=== PATIENT | female | born 1945 | race Caucasian/White ===

== ENCOUNTER 2020-01-01 14:57 | Inpatient (IN) | payer OTHER ==
[~2020-01-01] VITALS: Ht 157.5 cm; Wt 47.8 kg
[2020-01-01 15:06] VITALS: BP 205/65
[2020-01-01 15:32] LABS: HEMATOCRIT 40.9 % (37.0-47.0); HEMOGLOBIN 13.1 gm/dL (12.0-15.0); MCH 29.1 pg (26.0-34.0); MCHC 31.9 g/dL (28.0-37.0); MCV 91.3 fL (80.0-100.0); MPV 8.1 fl. (7.2-11.1); NUCLEATED RBCS 0 /100WBC; PLATELET COUNT* 664 thou/uL (150-400); RBC 4.48 mil/uL (4.20-5.00); RDW-CV 14.2 % (10.5-14.5); WBC 22.6 thou/uL (4.0-11.0)
[2020-01-01 15:46] LABS: APTT 21.5 Seconds (25.0-31.3); CALCIUM 8.9 mg/dL (8.5-10.1); CREATININE 0.9 mg/dL (0.6-1.3); INR 1.1; POTASSIUM 4.8 mmol/L (3.5-5.1); PROTIME 11.2 Seconds (9.20-11.50)
[2020-01-01 15:56] LABS: ABSOLUTE LYMPHOCYTES 1.6 thou/uL (0.8-5.3); ABSOLUTE MONOCYTES 1.4 thou/uL (0.0-1.2); ABSOLUTE NEUTROPHILS 19.7 thou/uL (1.6-8.1); PLATELET ESTIMATE INCREASED; TOTAL BILIRUBIN 0.4 mg/dL (<0.1-1.0); TOTAL PROTEIN 7.8 g/dL (6.4-8.2)
[2020-01-01] MEDS ORDERED: NEURONTIN 300M300 M2 PO (16:09)
[2020-01-01] MEDS ORDERED: MIRTAZAPINE7.5 MG PO (16:10)
[2020-01-01] MEDS ORDERED: ADVAIR HFA 230M12 GM INH (16:10)
[2020-01-01] MEDS ORDERED: PREDNISONE 5 MG5 M1 PO (16:11)
[2020-01-01] MEDS ORDERED: IPRAT-ALBUT 0.5-3 ML INH (16:11)
[2020-01-01] MEDS ORDERED: FLONASE 0.05%50 MCG NARES (16:12)
[2020-01-01] MEDS ORDERED: CARBAMAZEPINE100 M2 PO (16:12)
[2020-01-01] MEDS ORDERED: ALENDRONATE SOD70 MG PO (16:12)
[2020-01-01] MEDS ORDERED: SINGULAIR 10 MG10 M1 PO (16:13)
[2020-01-01] MEDS ORDERED: PLAVIX 75 MG TA75 MG PO (16:13)
[2020-01-01] MEDS ORDERED: ASA81BEC PO (16:13)
[2020-01-01] MEDS ORDERED: HYDROCHLOROTHIA25 M2 PO ×2 (16:14→16:15)
[2020-01-01] MEDS ORDERED: ZESTRIL40 MG PO (16:14)
[2020-01-01] MEDS ORDERED: LIPITOR40 MG PO (16:15)
--- NOTE | 2020-01-01 17:37 | EKG ---
[place] [address] ELECTROCARDIOGRAM REPORT Name: ALLISON ELIAS Room: [facility]#: [id number] Admission: 01/01/20 Attend Phys: Discharge: Date of : 41 Date of Service: 01/01/20 1506 Report #: [id number] THIS REPORT FOR: //name// [facility] ED Test Date: 2020-01-01 Test Time: 15:06:46 Pat Name: ALLISON ELIAS Department: Room: Gender: F Load Dispatcher: LALO : 1945 Requested By: Prasanth Edouard Order Number: [id number] MD: Cory Kay Measurements Intervals [place] Rate: 90 P: 86 RI: 176 QRS: -12 QRSD: 120 T: 79 QT: 501 QTc: 613 Interpretive Statements Sinus rhythm with mobitz I av block Ventricular tachycardia, unsustained Biatrial enlargement Left ventricular hypertrophy Nonspecific T abnrm, anterolateral leads Borderline prolonged QT interval No previous ECG available for comparison Electronically Signed On 01-01-2020 17:35:23 CDT by Cory Kay [email or web address] <ELECTRONICALLY SIGNED> By: Cory Kay MD, [facility] 01/01/20 1735 1506 1506 Cory Kay MD, [facility] /EPI
--- NOTE | 2020-01-01 17:38 | EKG ---
[place] [address] ELECTROCARDIOGRAM REPORT Name: ALLISON ELIAS Room: [facility]#: [id number] Admission: 01/01/20 Attend Phys: Discharge: Date of : 41 Date of Service: 01/01/20 1507 Report #: [id number] THIS REPORT FOR: //name// [facility] ED Test Date: 2020-01-01 Test Time: 15:07:27 Pat Name: ALLISON ELIAS Department: Room: Gender: F Line Palletizer: : 1945 Requested By: Prasanth Edouard Order Number: [id number] Isaac MD: Cory Kay Measurements Intervals [place] Rate: 107 P: 87 [place]: 170 QRS: 11 QRSD: 137 T: 61 QT: 445 QTc: 594 Interpretive Statements Sinus tachycardia with mobitz type I av block Probable left atrial enlargement Right bundle branch block Electronically Signed On 01-01-2020 17:36:37 CDT by Cory Kay [email or web address] <ELECTRONICALLY SIGNED> By: Cory Kay MD, [facility] 01/01/20 1736 D: 05/7 150 Cory Kay MD, FACC /EPI
[2020-01-01 18:48] VITALS: BP 131/74
[2020-01-01 20:00] VITALS: BP 142/84
--- NOTE | 2020-01-01 20:00 | NUR ---
RECEIVED REPORT AND ASSUMED CARE OF PT. PT SITTING UP IN BED, VERY SOA WITH DIFFICULTY TALKING. INSTRUCTED ON PURSE LIP BREATHING. O2 ON AT 5L/NC WITH O2 SAT OF 95%. TELEMETRY ON SHOWING SR. SEE ADMISSION ASSESSMENT AND HX. WILL CONT TO MONITOR AND ASSIST NEEDED.
[2020-01-02 00:14] VITALS: BP 112/70
[2020-01-02 00:41] LABS: % SATURATION 8 % (20-39); IRON 39 ug/dL (50-175)
[2020-01-02 04:21] VITALS: BP 126/71
--- NOTE | 2020-01-02 06:48 | NUR ---
STATES SHE FEELS BETTER THIS AM. BREATHING IMPROVED, LESS AIR HUNGER. ABLE TO DO GROOMING WITHOUT SOA. TELEMETRY CONT TO SHOW SR. HS GOALS OF REST AND SAFETY ACHIEVED. HOURLY ROUNDING OBSERVED.
[2020-01-02 08:00] VITALS: BP 125/72
[2020-01-02 11:37] LABS: HEMATOCRIT 35.8 % (37.0-47.0); HEMOGLOBIN 11.7 gm/dL (12.0-15.0); MCH 29.5 pg (26.0-34.0); MCHC 32.6 g/dL (28.0-37.0); MCV 90.5 fL (80.0-100.0); MPV 8.2 fl. (7.2-11.1); RBC 3.95 mil/uL (4.20-5.00); RDW-CV 14.5 % (10.5-14.5); WBC 22.2 thou/uL (4.0-11.0)
[2020-01-02 11:50] LABS: ALBUMIN 3.6 g/dL (3.4-5.0); CALCIUM 8.9 mg/dL (8.5-10.1); PHOSPHORUS* 2.5 mg/dL (2.5-4.9)
[2020-01-02 11:56] LABS: POTASSIUM 3.7 mmol/L (3.5-5.1)
[2020-01-02 12:00] VITALS: BP 92/57
[2020-01-02 17:33] VITALS: BP 118/65
--- NOTE | 2020-01-02 19:45 | NUR ---
PT. AOX4, APPEARS MILDLY CONFUSED AT TIMES, SR ON MONITOR, DENIES PAIN. NON-LABORED BREATHING, STABLE O2 SATS ON 4L NC. ENSURE SUPPLEMENT WITH ALL MEALS. HOURLY ROUNDING PERFORMED. CALL LIGHT AND PERSONAL BELONGINGS PLACED WITHIN REACH.
[2020-01-02 20:00] VITALS: BP 129/78
--- NOTE | 2020-01-02 20:00 | NUR ---
RECEIVED REPORT AND ASSUMED CARE OF PT, ASSESSMENT COMPLETED. O2 ON AT 4L/NC, VERY SOA WITH ANY ACTIVITY. RESTING WITH HOB ELEVATED. TELEMETRY ON SHOWING ST TO SR. WILL CONT TO MONITOR AND ASSIST NEEDED.
[2020-01-03] VITALS: BP 140/83
[2020-01-03 04:00] VITALS: BP 121/72
--- NOTE | 2020-01-03 05:35 | NUR ---
SLEPT WELL TONIGHT. UP TO BR WITH SBA AND STEADY GAIT. BECOMES SOA WITH ANY ACTIVITY. TELEMETRY CONT TO SHOW SR WITH OCC PVC. HS GOALS OF REST AND SAFETY ACHIEVED. HOURLY ROUNDING OBSERVED.
[2020-01-03 08:00] VITALS: BP 127/69
[2020-01-03 10:01] LABS: ALBUMIN 3.7 g/dL (3.4-5.0); CALCIUM 8.9 mg/dL (8.5-10.1); CREATININE 1.2 mg/dL (0.6-1.3); MAGNESIUM 2.1 mg/dL (1.8-2.4)
[2020-01-03] MEDS ORDERED: CARBAMAZEPINE100 M2 PO (10:52)
[2020-01-03] MEDS ORDERED: LEVAQUIN 750 M750 MG PO (10:52)
[2020-01-03] MEDS ORDERED: NICOTINE TRANSD14 M1 TRANSDERM (10:52)
[2020-01-03] MEDS ORDERED: FERROUSUL325 M1 PO (10:52)
[2020-01-03] MEDS ORDERED: SENOKOT-S1 TA2 PO (10:52)
[2020-01-03] MEDS ORDERED: REMERON15 M2 PO (10:52)
[2020-01-03] MEDS ORDERED: C COMPLEX500 MG PO (10:52)
[2020-01-03] MEDS ORDERED: PREDNISONE 5 MG5 M1 PO (10:57)
[2020-01-03 12:37] VITALS: BP 103/74
[2020-01-03 13:46] VITALS: BP 103/74
--- NOTE | 2020-01-03 14:10 | NUR ---
PT VSS, A&OX4, SR WITH PVCS ON TELE, NC@4L BASELINE, STAND BY ASSIST, HOURLY ROUNDING PERFORMED, POSSESSIONS AND CALL LIGHT WITHIN REACH. REC DISCHARGE ORDERS, REVIEWED WITH PATIENT, TELE MONITOR AND IV REMOVED WITHOUT COMPLICATION, SCRIPTS SENT ELECTRONICALLY- CARE NOTES GIVEN, PT TAKEN TO ED EXIT IN WHEELCHAIR BY NURSING STAFF, PICKED UP BY SON IN FAMILY CAR
== END 2020-01-03 15:20 | disposition home or self-care (01) | DRG 193 ==
LOC: M.ERS 14:57 → M.2W 16:09 → M.TBA-ER 16:09 → M.ERS 18:52 → M.2W 19:19
PROVIDERS: Emergency Medicine Emergency Medical Services; ADMIT Family Medicine
DX: J15.9 Unspecified bacterial pneumonia (principal); J96.20 Acute and chronic respiratory failure, unspecified whether with hypoxia or hypercapnia; R65.11 Systemic inflammatory response syndrome (SIRS) of non-infectious origin with acute organ dysfunction; I16.1 Hypertensive emergency; I24.8 Other forms of acute ischemic heart disease; J43.9 Emphysema, unspecified; F17.210 Nicotine dependence, cigarettes, uncomplicated; R79.89 Other specified abnormal findings of blood chemistry; T38.0X5A Adverse effect of glucocorticoids and synthetic analogues, initial encounter; D47.3 Essential (hemorrhagic) thrombocythemia; D50.9 Iron deficiency anemia, unspecified; Z88.1 Allergy status to other antibiotic agents; Z99.81 Dependence on supplemental oxygen; Z79.899 Other long term (current) drug therapy

== ENCOUNTER 2021-05-17 22:12 | Observation (INO) | payer OTHER ==
[~2021-05-17] VITALS: Ht 152.4 cm; Wt 53.2 kg
[~2021-05-17 22:12] MED LIST: ADVAIR HFA 230M12 GM INH; ALENDRONATE SOD70 MG PO; ASA81BEC PO; C COMPLEX500 MG PO; CARBAMAZEPINE100 M2 PO; FERROUSUL325 M1 PO; FLONASE 0.05%50 MCG NARES; HYDROCHLOROTHIA25 M2 PO; IPRAT-ALBUT 0.5-3 ML INH; LEVAQUIN 750 M750 MG PO; LIPITOR40 MG PO; MIRTAZAPINE7.5 MG PO; NEURONTIN 300M300 M2 PO; NICOTINE TRANSD14 M1 TRANSDERM; PLAVIX 75 MG TA75 MG PO; PREDNISONE 5 MG5 M1 PO; REMERON15 M2 PO; SENOKOT-S1 TA2 PO; SINGULAIR 10 MG10 M1 PO; ZESTRIL40 MG PO
[2021-05-17 22:13] VITALS: BP 167/74
[2021-05-17 23:14] LABS: CALCIUM 9.1 mg/dL (8.5-10.1); POTASSIUM 4.3 mmol/L (3.5-5.1)
[2021-05-17 23:19] LABS: ALBUMIN 3.9 g/dL (3.4-5.0); TOTAL BILIRUBIN 0.5 mg/dL (<0.1-1.0); TOTAL PROTEIN 7.3 g/dL (6.4-8.2)
[2021-05-17 23:24] LABS: PLATELET ESTIMATE INCREASED
[2021-05-17 23:25] LABS: LARGE PLATELETS FEW
[2021-05-17 23:26] LABS: TOXIC GRANULATION Occasional
[2021-05-17 23:30] LABS: ABSOLUTE LYMPHOCYTES 2.5 thou/uL (0.8-5.3); ABSOLUTE NEUTROPHILS 17.5 thou/uL (1.6-8.1); HEMATOCRIT 42.6 % (37.0-47.0); HEMOGLOBIN 13.8 gm/dL (12.0-15.0); MCH 30.1 pg (26.0-34.0); MCV 92.9 fL (80.0-100.0); RBC 4.59 mil/uL (4.20-5.00)
[2021-05-17 23:31] LABS: MCHC 32.4 g/dL (28.0-37.0); MPV 7.4 fl. (7.2-11.1); PLATELET COUNT* 731 thou/uL (150-400); RDW-CV 14.4 % (10.5-14.5)
[2021-05-17 23:36] LABS: APTT 22.2 Seconds (25.0-31.3); INR 1.1; PROTIME 11.4 Seconds (9.20-11.50)
[2021-05-17 23:37] LABS: BE 4.6 mmol/L (-2 to +3); PCO2 43.7 mmHg (35.0-45.0); PO2 103.1 mmHg (75.0-100.0); pH 7.444 (7.340-7.450)
--- NOTE | 2021-05-17 23:51 | NUR ---
PURWICK APPLIED AT THIS TIME.
[2021-05-18] VITALS (7 sets, daily range): BP systolic 100–172; BP diastolic 53–75
[2021-05-18] MEDS ORDERED: CARBAMAZEPINE300 MG PO (08:26)
[2021-05-18] MEDS ORDERED: FERROUS GLUCON324 M2 PO (08:29)
[2021-05-18] MEDS ORDERED: TRELEGY ELLIPT1 EACH INH (08:31)
[2021-05-18] MEDS ORDERED: HYDROCHLOROTH12.5 M2 PO (08:32)
[2021-05-18] MEDS ORDERED: TOPROL XL25 MG PO (08:34)
[2021-05-18] MEDS ORDERED: MOBIC7.5 MG PO (08:34)
[2021-05-18] MEDS ORDERED: PREDNISONE 5 MG5 MG PO (08:35)
--- NOTE | 2021-05-18 11:21 | EKG ---
[place] [address] ELECTROCARDIOGRAM REPORT Name: ALLISON ELIAS Room: [address] ADM IN .R.#: [id number] Admission: 05/18/21 Attend Phys: Jeannette Donato Discharge: Date of : 41 Date of Service: 05/18/21 0509 Report #: [id number] THIS REPORT FOR: //name// [facility] ED Test Date: 2021-05-18 Test Time: 05:09:16 Pat Name: ALLISON ELIAS Department: Room: [facility] Gender: F User Experience Manager: DT : 1945 Requested By: Madeline Tafoya Order Number: [id number] MD: Jovani Hernadez Measurements Intervals [place] Rate: 75 P: 77 TN: QRS: 30 QRSD: 105 T: 68 QT: 481 QTc: 538 Interpretive Statements Sinus rhythm Second deg AVB, Mobitz I (Wenckebach) Borderline repolarization abnormality Prolonged QT interval Compared to ECG 01/01/2020 15:07:27 Prolonged QT interval now present Sinus tachycardia no longer present Second-degree AV block, Mobitz type I (Wenckebach) no longer present Right bundle-branch block no longer present Electronically Signed On 05-18-2021 11:21:18 CDT by Jovani Hernadez [email or web address] <ELECTRONICALLY SIGNED> By: Jovani Hernadez MD, FACC 05/18/21 1121 0509 0509 Jovani Hernadez MD, FAC /EPI
--- NOTE | 2021-05-18 11:24 | NUR ---
The patient arrrived to 230. The patient is alert and able to make needs known. LS diminshed. Bowel sounds +4. Call light within reach. BIPAP placed oxygen changed to nasal cannula. Heparin rate changed. APTT redraw for 1730. No edema. Denies CP or SOB.
--- NOTE | 2021-05-18 13:18 | 2DMMODE ---
[place] [address] 2 D/M-MODE ECHOCARDIOGRAM Name: JADAALLISON Room: [address] IN [facility]#: [id number] Admission: 05/18/21 Attend Phys: Jeannette Donato Discharge: Date of : 41 Date of Service: 05/18/21 1318 Report #: [id number] THIS REPORT FOR: cc: Malissa Ch MD, Tuongvan T. MD Liston, Michael J. MD [facility] ~ APPROVED REPORT Study performed: 05/18/2021 12:30:58 EXAM: Comprehensive 2D, Doppler, and color-flow Echocardiogram Patient Location: In-Patient Room #: 230 Status: routine BSA: 1.55 HR: 49 bpm BP: 153/75 mmHg Rhythm: Atrial Fibrillation Other Information Study Quality: Good Indications Dyspnea 2D Dimensions IVSd: 9.30 (7-11mm) LVOT Diam: 19.08 (18-24mm) LVDd: 45.91 mm PWd: 8.68 (7-11mm) Ascending Ao: 28.86 (22-36mm) LVDs: 24.44 (25-40mm) Aortic Root: 26.88 mm Volumes Left Atrial Volume (Systole) LA ESV Index: 25.70 mL/m2 Aortic Valve AoV Peak Adam.: 2.63 m/s AO Peak Gr.: 27.62 mmHg LVOT Max P.86 mmHg AO Mean Gr.: 13.50 mmHg LVOT Mean P.59 mmHg LVOT Max V: 1.49 m/s AO V2 VTI: 57.49 cm LVOT Mean V: 0.85 m/s LUCIA (VTI): 1.67 cm2 LVOT V1 VTI: 33.66 cm AI Pratt: 2.23 m/s2 [place] [address] 2 D/M-MODE ECHOCARDIOGRAM Name: ALLISON ELIAS Room: [address] IN .R.#: [id number] Admission: 05/18/21 Attend Phys: Jeannette Donato Discharge: Date of : 41 Date of Service: 05/18/21 1318 Report #: [id number] AI PHT: 576.66 ms Mitral Valve E/A Ratio: 1.65 MV Decel. Time: 157.47 ms MV E Max Adam.: 1.39 m/s MV PHT: 45.67 ms MVA (PHT): 4.82 cm2 TDI E/Lateral E': 8.69 E/Medial E': 11.58 Medial E' Adam.: 0.12 m/s Lateral E' Adam.: 0.16 m/s Pulmonary Valve PV Peak Adam.: 1.30 m/s PV Peak Gr.: 6.71 mmHg Tricuspid Valve RAP Estimate: 5.00 mmHg TR Peak Gr.: 38.35 mmHg RVSP: 43.00 mmHg PA Pressure: 43.00 mmHg Left Ventricle The left ventricle is normal size. There is normal LV segmental wall motion. There is normal left ventricular wall thickness. Left ventricular systolic function is normal. LVEF is 65-70%. The left ventricular diastolic function is normal. Right Ventricle The right ventricle is normal size. The right ventricular systolic function is normal. Atria The left atrium size is normal. Right atrium is dilated. Aortic Valve Moderate aortic valve sclerosis. Mild aortic regurgitation. Mild aortic stenosis. Mitral Valve The mitral valve is normal in structure. Trace mitral regurgitation. No evidence of mitral valve stenosis. Tricuspid Valve The tricuspid valve is normal in structure. Mild tricuspid regurgitation. The RVSP is 40-[place] [address] 2 D/M-MODE ECHOCARDIOGRAM Name: ALLISON ELIAS Room: [address] IN [facility]#: [id number] Admission: 05/18/21 Attend Phys: Jeannette Donato Discharge: Date of : 41 Date of Service: 05/18/21 1318 Report #: [id number] Pulmonic Valve The pulmonary valve is normal in structure. Trace pulmonic regurgitation. Great Vessels The aortic root is normal in size. IVC is normal in size and collapses >50% with inspiration. Pericardium There is no pericardial effusion. <Conclusion> The left ventricle is normal size. There is normal left ventricular wall thickness. Left ventricular systolic function is normal. LVEF is 65-70%. The left ventricular diastolic function is normal. There is normal LV segmental wall motion. Moderate aortic valve sclerosis. Mild aortic regurgitation. Mild aortic stenosis. Trace mitral regurgitation. Mild tricuspid regurgitation. The RVSP is 40-45 mmHg. IVC is normal in size and collapses >50% with inspiration. <ELECTRONICALLY SIGNED> By: Jovani Hernadez MD, FACC 05/18/211317 17 17 Jovani Hernadez MD, FACC /INF
[2021-05-18 13:41] LABS: HEMOGLOBIN 13.1 gm/dL (12.0-15.0); MCH 29.3 pg (26.0-34.0); MCV 91.6 fL (80.0-100.0); MPV 7.8 fl. (7.2-11.1); NUCLEATED RBCS 0 /100WBC; PLATELET COUNT* 703 thou/uL (150-400); RBC 4.48 mil/uL (4.20-5.00); RDW-CV 14.1 % (10.5-14.5); WBC 26.3 thou/uL (4.0-11.0)
[2021-05-18 14:08] LABS: ALBUMIN 3.5 g/dL (3.4-5.0); CALCIUM 8.9 mg/dL (8.5-10.1); CREATININE 1.1 mg/dL (0.6-1.3); POTASSIUM 4.4 mmol/L (3.5-5.1); TOTAL BILIRUBIN 0.5 mg/dL (<0.1-1.0); TOTAL PROTEIN 7.6 g/dL (6.4-8.2)
[2021-05-18 15:42] LABS: ABSOLUTE EOSINOPHILS 0.3 thou/uL (0.0-0.7); ABSOLUTE LYMPHOCYTES 2.9 thou/uL (0.8-5.3); ABSOLUTE MONOCYTES 2.1 thou/uL (0.0-1.2); PLATELET ESTIMATE INCREASED
[2021-05-18 15:44] LABS: LARGE PLATELETS OCCASIONAL
--- NOTE | 2021-05-18 18:24 | NUR ---
THE PATIENT RETURNED PACEMAKER PLACMENT. SLING AND SWATH IN PLACE TO LEFT ARM. THE PATIENT IS ALERT. PRESSURE DRESSING TO LEFT CHEST. DRESSING C/D/I. BIPAP PLACED ON AT THE PATIENT REQUEST. PACED ON THE MONITOR. HR INCREASED WITH ACTIVITY. HER SON IS AT THE BEDSIDE.
[2021-05-19 03:47] LABS: ABSOLUTE BASOPHILS 0.1 thou/uL (0.0-0.2); ABSOLUTE LYMPHOCYTES 0.8 thou/uL (0.8-5.3); ABSOLUTE MONOCYTES 0.7 thou/uL (0.0-1.2); ABSOLUTE NEUTROPHILS 17.9 thou/uL (1.6-8.1); BASOPHILS 0.3 %; HEMATOCRIT 39.1 % (37.0-47.0); HEMOGLOBIN 12.5 gm/dL (12.0-15.0); MCH 29.4 pg (26.0-34.0); MCV 92.1 fL (80.0-100.0); MONOCYTES 3.4 %; MPV 7.6 fl. (7.2-11.1); NUCLEATED RBCS 0 /100WBC; PLATELET COUNT* 652 thou/uL (150-400); POLYS 92.3 %; RBC 4.24 mil/uL (4.20-5.00); RDW-CV 14.3 % (10.5-14.5); WBC 19.4 thou/uL (4.0-11.0)
[2021-05-19 04:01] LABS: CALCIUM 8.6 mg/dL (8.5-10.1); CREATININE 0.9 mg/dL (0.6-1.3); POTASSIUM 3.5 mmol/L (3.5-5.1)
--- NOTE | 2021-05-19 04:59 | NUR ---
INITAL ASSESSMENT PT ANXIOUS AND IN PAIN. TYLENOL GIVEN FOR THAT. HR HIGH IN THE 120S. DR ALEX NOTIFIED. LOPRESSOR GIVEN AND XANAX. HR DOWN TO THE 80S AND PT RELAXED AND SLEEPING. COMPRESSION DRSG STILL IN PLACE FROM PACE MAKER INSERTION. L ARM SLING ON. ROUNDHOUSE SUPERVISOR TRACING V-PACED WITH OCCASIONAL SINUS BEAT.
[2021-05-19 05:06] VITALS: BP 122/78
[2021-05-19 08:00] VITALS: BP 128/73
--- NOTE | 2021-05-19 08:27 | CON ---
[address] [address] CONSULTATION Name: ALLISON ELIAS Room: [address] IN M.R.#: [id number] Admission: 05/18/21 Attend Phys: Chris Holliday Discharge: Date of : 41 Report #: [id number] THIS REPORT FOR: cc: Malissa Ch MD, Tuongvan T. MD Pervez, Adeel MD ~ DATE OF CONSULTATION: 05/18/2021 REQUESTING PHYSICIAN: Ranulfo Mix MD INDICATION FOR CONSULTATION: Chronic respiratory failure/COPD. HISTORY OF PRESENT ILLNESS: A 75-year-old female, past medical history includes a history of COPD. She is on Trilogy device while asleep long-term, also has an oxygen long-term and takes prednisone 5 mg daily long-term. This time, she is admitted with increasing shortness of breath. She was having bradyarrhythmias and there was mild elevation in troponin I. Initially, the patient did receive an IV heparin drip, which has now been discontinued. She has had a pacemaker placed by Cardiology. At this time point, the patient is on 4 liters nasal cannula and appears comfortable. Reports that her shortness of breath and cough are currently at baseline. She does not have any upper respiratory complaints or swelling of lower extremities either. She has had some pain at the surgical site, but this is under control. REVIEW OF SYSTEMS: For 12 points is negative except as mentioned above. PAST MEDICAL HISTORY: Chronic respiratory failure secondary to COPD, on oxygen, Trilogy while asleep and prednisone long-term; bradyarrhythmias and now she has had a pacemaker placed; coronary artery disease, has had cardiac catheterizations multiple performed at [place], I do not have details available; hypertension. SOCIAL HISTORY: There is an extensive history of smoking in the past, she has now discontinued. No known history of heavy alcohol use or illegal drug use. CURRENT MEDICATIONS: List in [facility] reviewed. HOME MEDICATIONS: List also in [facility] reviewed. ALLERGIES: ERYTHROMYCIN, STREPTOMYCIN AND CITALOPRAM. PHYSICAL EXAMINATION: GENERAL: She is alert, awake and oriented, does not appear to be in any distress at this time. VITAL SIGNS: Pulse around 60, blood pressure 140/50, saturating 98%. [place] [address] CONSULTATION Name: ALLISON ELIAS Room: [address] IN [facility]#: [id number] Admission: 05/18/21 Attend Phys: Chris Holliday Discharge: Date of : 41 Report #: [id number] 4 liters nasal cannula, which is her baseline oxygen. She is afebrile. HEENT: Head is normocephalic and atraumatic. Throat, no erythema. NECK: Does not show raised JVP. CHEST: Breath sounds bilaterally equal, decreased. No added sounds. HEART: Regular. No murmur. ABDOMEN: Soft. EXTREMITIES: Lower extremities, no edema and no calf tenderness. LABORATORY DATA: Chest x-rays show chronic changes. There is also a radiopaque density in the right middle lobe, which is seen on the previous x-rays as well, perhaps is larger on the x-ray done today. ASSESSMENT/PLAN: 1. Chronic hypoxemic respiratory failure secondary to chronic obstructive pulmonary disease. She is on Trilogy as well as oxygen long-term. For now, we will keep her on BiPAP while asleep while here. I recommend that she should follow up with a cut plug packer. In case she is interested in following with us, I will be happy to see her in the office. 2. Chronic obstructive pulmonary disease. She is also on prednisone long-term 5 mg daily. Therefore, I would go ahead and give her an additional dose of 30 mg once now for stress coverage. 3. Bradyarrhythmias. She has had a pacemaker placed. 4. Coronary artery disease, has had cardiac catheterization, was performed in [facility] previously. Echocardiogram is noted to show a left ventricular ejection fraction of 65-70% with a pulmonary artery systolic of 43. 5. Right middle lobe infiltrates/atelectasis. There is a radiopaque density in the right middle lobe. This is also seen on previous chest x-rays. It does look larger on the x-ray done today. This could represent both chronic change with atelectasis as well as infiltrate. The patient does not have any obvious signs of pneumonia. Therefore, for now, I decided to hold off on antibiotics and we will only follow this with another chest x-ray tomorrow when able to. Recommend starting incentive spirometry and ambulation. 6. Deep venous thrombosis prophylaxis. If she stays in the hospital, then recommend starting Lovenox in the prophylactic dose tomorrow. 7. Leukocytosis and thrombocytosis. This is present on her lab work from last year as well and appears to be chronic. I recommend that she be seen by Hematology if she has not already. It is not known to me as to whether the patient has previously been evaluated by Hematology. Thanks for this consultation. <ELECTRONICALLY SIGNED> By: Darwin Friedman MD 05/19/21 0827 1809 MD daniel Hoover
--- NOTE | 2021-05-19 09:22 | NUR ---
The patient is alert. V paced. 4l nasal cannula. Denies CP or SOB. left chest incision intact. sling in place. [place] light within reach.
--- NOTE | 2021-05-19 09:43 | NUR ---
CM ASSESSMENT: PT A&O, INDEPENDENT WITH ADL'S AND ACTIVE. PT RESIDES AT HOME AQND HER 2 SONS LIVE WITH HER. PT USES A WALKER FOR MOBILITY. PT USES 4L O2 AND TRILOGY AT HOME AT BASELINE. PT HAS PAST HX OF HH AND SNF, BUT COULD NOT RECALL THE NAME. NO CM D/C PLANNING NEEDS ANTICIPATED AT THIS TIME. CM WILL REMAIN AVAILABLE TO ASSIST AND FOLLOW NEEDED.
[2021-05-19 12:00] VITALS: BP 97/32
--- NOTE | 2021-05-19 12:13 | NUR ---
Discharge instructions given to the patient and her son. No questions voiced.
--- NOTE | 2021-05-19 13:25 | NUR ---
The patient was wheeled to a private car. All belongings removed by her son. Her son has the f/u appointments.
--- NOTE | 2021-05-19 14:30 | EKG ---
[place] [address] ELECTROCARDIOGRAM REPORT Name: ALLISON ELIAS Room: [address] ADM IN M.R.#: [id number] Admission: 05/18/21 Attend Phys: Jeannette Donato Discharge: Date of : 41 Date of Service: 05/17/21 2218 Report #: [id number] THIS REPORT FOR: //name// [facility] ED Test Date: 2021-05-17 Test Time: 22:18:57 Pat Name: ALLISON ELIAS Department: Room: [address] Gender: F Small Parts Assembler: : 1945 Requested By: Madeline Tafoya Order Number: [id number] Isaac MD: Rudolph Browne Measurements Intervals [place] Rate: 55 P: 76 RI: 169 QRS: -47 QRSD: 108 T: 31 QT: 507 QTc: 485 Interpretive Statements Sinus rhythm Left atrial enlargement LAD, consider left anterior fascicular block LVH with strain is suggested Anterolateral ischemia cannot be excluded Marked baseline wandering Electronically Signed On 05-19-2021 14:30:10 CDT by Rudolph Browne [email or web address] <ELECTRONICALLY SIGNED> By: Rudolph Browne MD, FACC 05/19/21 1430 17 17 Rudolph Browne MD, FAC /EPI
--- NOTE | 2021-05-19 14:38 | EKG ---
[place] [address] ELECTROCARDIOGRAM REPORT Name: ALLISON ELIAS Room: [address] M.R.#: [id number] Admission: 05/18/21 Attend Phys: Jeannette Donato Discharge: Date of : 41 Date of Service: 05/19/2125 Report #: [id number] THIS REPORT FOR: //name// [facility] Test Date: 2021-05-19 Test Time: 09:25:46 Pat Name: ALLISON ELIAS Department: Room: [address] Gender: F Crystal Grower: AO : 1945 Requested By: Jovani Hernadez Order Number: [id number] Isaac MD: Rudolph Browne Measurements Intervals [place] Rate: 93 P: 83 MS: 193 QRS: -87 QRSD: 145 T: 93 QT: 433 QTc: 539 Interpretive Statements Atrial-sensed ventricular-paced rhythm No further analysis attempted due to paced rhythm Compared to ECG 05/18/2021 05:09:16 Atrial sensed ventricular paced rhythm is noted Prolonged QT interval no longer present Electronically Signed On 05-19-2021 14:38:38 CDT by Rudolph Browne [email or web address] <ELECTRONICALLY SIGNED> By: Rudolph Browne MD, FACC 05/19/21 1438 4 4 Rudolph Browne MD, FACC /EPI
--- NOTE | 2021-05-19 14:39 | EKG ---
[place] [address] ELECTROCARDIOGRAM REPORT Name: ALLISON ELIAS Room: [address] M.R.#: [id number] Admission: 05/18/21 Attend Phys: Jeannette Donato Discharge: Date of : 41 Date of Service: 05/19/[address] Report #: [id number] THIS REPORT FOR: //name// [facility] Test Date: 2021-05-19 Test Time: 09:27:25 Pat Name: ALLISON ELIAS Department: Room: [address] Gender: F Consulting Solution Manager: AO : 1945 Requested By: Jovani Hernadez Order Number: [id number] Isaac MD: Rudolph Browne Measurements Intervals [place] Rate: 93 P: 85 ME: 193 QRS: -86 QRSD: 144 T: 92 QT: 434 QTc: 540 Interpretive Statements Atrial-sensed ventricular-paced rhythm No further analysis attempted due to paced rhythm Compared to ECG 05/19/2021 09:25:46 No significant changes Electronically Signed On 05-19-2021 14:38:49 CDT by Rudolph Browne [email or web address] <ELECTRONICALLY SIGNED> By: Rudolph Browne MD, [facility] 05/19/21 1438 09 6 Rudolph Browne MD, [facility] /EPI
--- NOTE | 2021-05-23 16:02 | CARD ---
[place] [address] CARDIAC CATH REPORT Name: ALLISON ELIAS Room: [address] Dana#: [id number] Admission: 05/18/21 Attend Phys: Chris Holliday Discharge: 05/19/21 Date of : 41 Report #: [id number] THIS REPORT FOR: cc: Malissa Ch MD, Tuongvan T. MD Liston, Michael J. MD [facility] ~ ADDENDUM APPROVED REPORT Study performed: 05/18/2021 15:48:38 Patient Status: In-Patient Room #: Event Personnel: Nurses Educator- Jovani Hernadez MD, RN- Laya Hickey RN, Scrub- Kristie Barber RTR, Monitor- Keeley Looney RTR Exam: Insertion of Dual Chamber Permanent Pacemaker Indications: Symptomatic type II second-degree AV block. The patient is a 75 year-old female with a history of Symptomatic second-degree type II AV block. Conscious Sedation Start time: 16:33 End Time: 17:08 Versed 1.0 mg Implanted Devices: Biotronik Pacemaker Generator- Edora 8 DR-T SN:[id number] Biotronik A Lead- Solia S 45 SN:[id number] Biotronik V Lead- Solia S 53 SN:[id number] Procedure The patient underwent informed consent. We discussed the details of the procedure including the risks, which include, but not limited to bleeding, infection, vascular damage, cardiac perforation, and pneumothorax. She understood these risks and was willing to proceed. As such, she was brought to the EP/Cardiac Catheterization laboratory in a fasting and sedated state and prepped and draped in a sterile fashion, received IV antibiotics prior to initiation of the procedure and a venogram was performed showing patency of the left axillary vein. The patient underwent conscious sedation, with no related complications. The patient was brought to the EP/Cardiac Catheterization laboratory and the left chest and shoulder were prepped and draped in a sterile manner. During this case, Fluoroscopy and visipaque 40cc [place] [address] CARDIAC CATH REPORT Name: ALLISON ELIAS [address] [id number] Admission: 05/18/21 Attend Phys: Chris Holliday Discharge: 05/19/21 Date of : 41 Report #: [id number] imaging. IV conscious sedation was used throughout procedure with appropriate monitoring and was performed in the presence of a registered nurse who was an independent trained observer other than the physician performing the procedure. The left subclavian region was infiltrated with 2% Lidocaine with Epinephrine subcutaneous anesthesia. A transverse incision was made in the left upper chest cavity. The subcutaneous pocket was formed via blunt dissection. Percutaneous venous access was achieved and an introducer sheath was inserted into the left Subclavian vein. Utilizing fluoroscopic guidance, the atrial and ventricular lead wires were advanced over the wires and positioned in the right atria and right ventricle respectively. Capturing and sensing thresholds were verified. Electrode Parameters P Wave: 6.5 mV R Wave: 13 mV Atrial Threshold: 1.0 V at 0.40 ms Ventricular Threshold: 1.0 V at 0.40 ms Atrial Resistance: 676 ohms Ventricular Resistance: 545 ohms Dual Chamber The atrial and ventricular leads were then secured using 0 silk sutures. The subcutaneous pocket was irrigated with ancef antibiotic solution.The atrial and ventricular leads were attached to the appropriate receptacles on the pulse generator and set screws firmly tightened to insure adequate contact and stability. The lead and pulse generator were placed into the subcutaneous pocket. Sharp and sponge counts were confirmed to be correct. At this time the pocket was closed subcutaneously with a 2.0 Vicryl and the skin was closed with a 4.0 Vicryl. The operative site was dressed in sterile fashion with Benzoin spray, steri strips, telfa, and tegaderm and the patient was transferred to the floor in stable condition. Complications The patient tolerated the procedure well and there were no complications associated with the procedure. Findings Specimens Removed: No Estimated Blood Loss: 5 [place] [address] CARDIAC CATH REPORT Name: ALLISON ELIAS Room: [address] Marty Cortez#: [id number] Admission: 05/18/21 Attend Phys: Chris Holliday Discharge: 05/19/21 Date of : 41 Report #: [id number] Conclusion 1. Symptomatic type II second-degree AV block. 2. Successful placement of a dual-chamber pacemaker with atrial and ventricular lead placement. Recommendations 1. Follow-up site check in 1 week. 2. Follow-up device interrogation in 1 month. <ELECTRONICALLY SIGNED> By: Jovani Hernadez MD, FACC 05/23/211600 00 00Micdign[facility] health [facility]il[facility] medical centerroseann Hernadez MD, FACC /INF
== END 2021-05-19 14:00 | disposition home or self-care (01) ==
LOC: M.ERS 22:12 → M.2W 05-18 01:39 → M.TBA-ER 05-18 01:39 → M.2W 05-18 09:12
PROVIDERS: Internal Medicine; Internal Medicine Critical Care Medicine; Personal Emergency Response Attendant; ADMIT Internal Medicine; ATTEND Internal Medicine
DX: I44.1 Atrioventricular block, second degree (principal); I49.8 Other specified cardiac arrhythmias; J96.21 Acute and chronic respiratory failure with hypoxia; R77.8 Other specified abnormalities of plasma proteins; J43.9 Emphysema, unspecified; Z87.891 Personal history of nicotine dependence; I25.10 Atherosclerotic heart disease of native coronary artery without angina pectoris; Z20.822 Contact with and (suspected) exposure to COVID-19; I21.4 Non-ST elevation (NSTEMI) myocardial infarction; D72.829 Elevated white blood cell count, unspecified; D75.839 Thrombocytosis, unspecified; I82.409 Acute embolism and thrombosis of unspecified deep veins of unspecified lower extremity; I10 Essential (primary) hypertension; Z79.01 Long term (current) use of anticoagulants; Z79.899 Other long term (current) drug therapy